=== PATIENT | male | born 1955 | race Caucasian/White ===

== ENCOUNTER 2024-04-30 19:40 | Emergency (ER) | payer MEDICARE ==
[2024-04-30 19:45] VITALS: RESP 18; TEMP 98.9
--- NOTE | 2024-04-30 19:47 | ED ---
Fall HPI - General Chief Complaint: Fall Stated Complaint: Fall Time Seen by Provider: 04/30/24 19:47 Source: EMS, RN notes reviewed, old records reviewed Mode of arrival: EMS Limitations: altered mental status - History of Present Illness Initial Comments: This is a 68-year-old male to the ER for evaluation patient is presenting by EMS after a fall fall from standing with head injury patient admits to hitting his head complaining of headache and does admit to Plavix, denies any other injury or traumatic issue, no back pain arm pain leg pain hand pain or neck pain patient does have hematoma and this fall was from standing backwards hitting his head without loss of consciousness. 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 ROS Other: All systems not noted in ROS Statement are negative. Past Medical History Past Medical History: CVA/TIA Additional Past Medical History / Comment(s): Unable to answer due to CVA hx Additional Past Surgical History / Comment(s): unknown Past Psychological History: Unable to Obtain General Exam General appearance: alert, in no apparent distress Head exam: Present: atraumatic, normocephalic, normal inspection Eye exam: Present: normal appearance, PERRL, EOMI. Absent: scleral icterus, conjunctival injection, periorbital swelling ENT exam: Present: normal exam, mucous membranes moist Neck exam: Present: normal inspection. Absent: tenderness, meningismus, lymphadenopathy Respiratory exam: Present: normal lung sounds bilaterally. Absent: respiratory distress, wheezes, rales, rhonchi, stridor Cardiovascular Exam: Present: regular rate, normal rhythm, normal heart sounds. Absent: systolic murmur, diastolic murmur, rubs, gallop, clicks GI/Abdominal exam: Present: soft, normal bowel sounds. Absent: distended, tenderness, guarding, rebound, rigid Extremities exam: Present: normal inspection, full ROM, normal capillary refill. Absent: tenderness, pedal edema, joint swelling, calf tenderness Back exam: Present: normal inspection Neurological exam: Present: alert, oriented X3, CN II-XII intact Psychiatric exam: Present: normal affect, normal mood Skin exam: Present: warm, dry, intact, normal color. Absent: rash Course Vital Signs 04/30/24 04/30/24 19:41 20:58 Temperature 98.9 F Pulse Rate 71 55 L Respiratory 18 18 Rate Blood Pressure 156/89 164/84 O2 Sat by Pulse 96 95 Oximetry - Reevaluation(s) Reevaluation #1: 04/30/24 21:42 Medical records reviewed Reevaluation #2: 04/30/24 21:42 Patient symptoms unchanged Patient was a code coag Patient was a fall on Plavix with intracranial hemorrhage, there is no medication to combat Plavix in the setting of acute traumatic injury Patient blood pressure is well-controlled Reevaluation #3: 04/30/24 21:42 Patient informed of results and questions answered 04/30/24 21:43 Family at bedside now also aware of findings Reevaluation #4: Was pt. sent in by a medical professional or institution (, PA, ADMISSIONS COORDINATOR, urgent care, hospital, or senior care...) When possible be specific @ -no Did you speak to anyone other than the patient for history (EMS, parent, family, police, friend...)? What history was obtained from this source @ -no Did you review nursing and triage notes (agree or disagree)? Why? @ -agree Are old charts reviewed (outside hosp., previous admission, EMS record, old EKG, old radiological studies, urgent care reports/EKG's, senior care records)? Report findings @ -yes Differential Diagnosis (chest pain, altered mental status, abdominal pain women, abdominal pain men, vaginal bleeding, weakness, fever, dyspnea, syncope, headache, dizziness, GI bleed, back pain, seizure, CVA, palpatations, mental health, musculoskeletal)? @ -prior EKG interpreted by me (3pts min.). @ -yes X-rays interpreted by me (1pt min.). @ -yes negative for acute disease CT interpreted by me (1pt min.). @ -no U/S interpreted by me (1pt. min.). @ -no What testing was considered but not performed or refused? (CT, X-rays, U/S, labs)? Why? @ -none What meds were considered but not given or refused? Why? @ -none Did you discuss the management of the patient with other professionals (professionals i.e. Dr., PA, ADMISSIONS COORDINATOR, lab, RT, psych nurse, social media editor, admissions coordinator, teacher, forward air controller/air officer, case specialist)? Give summary @ -no Was smoking cessation discussed for >3mins.? @ -no Was critical care preformed (if so, how long)? @ -no Were there social determinants of health that impacted care today? How? (Homelessness, low income, unemployed, alcoholism, drug addiction, transportation, low edu. Level, literacy, decrease access to med. care, [place] [facility], rehab)? @ -none Was there de-escalation of care discussed even if they declined (Discuss DNR or withdrawal of care, Hospice)? DNR status @ -no What co-morbidities impacted this encounter? (DM, HTN, Smoking, COPD, CAD, Cancer, CVA, ARF, Chemo, Hep., AIDS, mental health diagnosis, sleep apnea, morbid obesity)? @ -none Was patient admitted / discharged? Hospital course, mention meds given and route, prescriptions, significant lab abnormalities, going to OR and other pertinent info. @ - Undiagnosed new problem with uncertain prognosis? @ -no Drug Therapy requiring intensive monitoring for toxicity (Heparin, Nitro, Insulin, Cardizem)? @ -no Were any procedures done? @ -no Diagnosis/symptom? @ - Acute, or Chronic, or Acute on Chronic? @ -Acute Uncomplicated (without systemic symptoms) or Complicated (systemic symptoms)? @ -Complicated Side effects of treatment? @ -no Exacerbation, Progression, or Severe Exacerbation? @ -exacerbation Poses a threat to life or bodily function? How? (Chest pain, USA, IA, pneumonia, PE, COPD, DKA, ARF, appy, cholecystitis, CVA, Diverticulitis, Homicidal, Suicidal, threat to staff... and all critical care pts) @ -yes Reevaluation #5: Differential Headache: Migraine, tension, cluster, carbon monoxide, central venous thrombosis, pension karma temporal arteritis, acute closure glaucoma, intercranial hemorrhage, mastoiditis, sinusitis, head injury, this is not meant to be an all-inclusive list. - Consultations Consultation #1: Spoke with [facility], they accept patient for transfer Medical Decision Making - Medical Decision Making 68 male to ER for fall fall on Plavix positive intracranial hemorrhage and area of old CVA. Patient will be transferred to [facility] for neurosurgical evaluation and treatment - Radiology Data Radiology results: report reviewed (CT brain C-spine chest and pelvis x-ray negative for acute disease), image reviewed Critical Care Time Critical Care Time: Yes Total Critical Care Time: 31 Disposition Clinical Impression: Fall, Intracranial hemorrhage Disposition: OTHER INSTITUTION NOT DEFINED Condition: Serious Is patient prescribed a controlled substance at d/c from ED?: No Referrals: Nonstaff,Physician [Primary Care Provider] - 1-2 days Time of Disposition: 21:30
--- NOTE | 2024-04-30 20:33 | XR ---
EXAMINATION TYPE: XR pelvis AP view DATE OF EXAM: 04/30/2024 8:01 PM COMPARISON: None. CLINICAL INDICATION: Male, 68 years old with history of fall, pain TECHNIQUE: AP view(s) obtained. FINDINGS: Femoral heads articulate with the acetabulum. Joint spaces are preserved. No acute fractures evident. Symphysis pubis and sacroiliac joints are normal. Vascular calcification is noted. IMPRESSION: 1. No acute osseous abnormality [facility], , 04/30/2024 8:30 PM
--- NOTE | 2024-04-30 20:34 | XR ---
EXAMINATION TYPE: XR chest 1V DATE OF EXAM: 04/30/2024 8:01 PM COMPARISON: None. CLINICAL INDICATION: Male, 68 years old with history of fall, TECHNIQUE: XR chest 1V view(s) obtained. FINDINGS: The heart size is normal. The pulmonary vasculature is normal. Some subtle subsegmental atelectasis may be at the right diaphragm. No pneumothorax is evident. No displaced rib fractures identified IMPRESSION: 1. Suggestion of small subsegmental atelectasis right lung base. [facility], , 04/30/2024 8:32 PM
--- NOTE | 2024-04-30 21:16 | CT ---
EXAMINATION TYPE: CT brain cspine wo con DATE OF EXAM: 04/30/2024 9:00 PM COMPARISON: None. CLINICAL INDICATION: Male, 68 years old with history of fall, , pain TECHNIQUE: CT of the brain is performed utilizing 3 mm thick sections through the posterior fossa and 3 mm thick sections through the remaining calvarium. Study is performed within 24 hours of arrival to the hospital. Contrast used: mL of , (none if empty) CT DLP: 568.60 mGycm, Automated exposure control for dose reduction was used. FINDINGS: There is a hyperdense collection within the posterior occipital region just left of midline. This are a measures 2.7 x 1.7 x 2.8 cm and is compatible with an acute hemorrhage. This may reside within a pr ior left occipital lobe infarct. There are prior infarcts within the right parietal lobe and parietal occipital region on the left and watershed region on the left. Periventricular white matter hypodensity is present likely on the basi s of chronic white matter ischemic changes. Paranasal sinuses and mastoid air cells within the hbjct-in-ngol are clear. IMPRESSIONS: 1. Acute hemorrhage within the prior left occipital lobe infarct area. Report was called to the emerg ency room by Dr. No by telephone at 2109 hours 04/30/2024 CT cervical spine. COMPARISON: None TECHNIQUE: CT of the cervical spine is performed in the axial plane at 2 mm thick sections. Reconstr ucted images in the coronal, and sagittal plane are reviewed on the computer. FINDINGS: No acute fractures are evident. Vertebral body alignment is normal. Disc space narrowing is present throughout the cervical spine greatest C4-5 C5-6 and C6-7. Vertebral body heights are preserved. No spinal canal stenosis is evident. Uncovertebral joint hypertrophy is contributing to foraminal narrowing on the left at C3-4 on the lef t to moderate degree C4-5 more severely bilaterally C5-6 and C6-7 IMPRESSION: 1. Degenerative disc changes and foraminal stenosis discussed above. 2. No acute osseous abnormality radiographically apparent. [facility], , 04/30/2024 9:13 PM
[2024-04-30] MEDS ORDERED: SODIUM CHLORIDE 0.9% 1,000 ML IV STA (21:39)
[2024-04-30 22:06] LABS: Basophils # (A) 0.1 k/uL (0-0.2); Basophils % (A) 0 %; Eosinophils # (A) 0.4 k/uL (0-0.7); Eosinophils % (A) 3 %; HCT 44.5 % (39.0-53.0); HGB 14.7 gm/dL (13.0-17.5); Lymphocytes # (A) 2.6 k/uL (1.0-4.8); Lymphocytes % (A) 21 %; MCHC 33.2 g/dL (31.0-37.0); MCV 90.4 fL (80.0-100.0); Mean Platelet Volume 8.8; Monocytes # (A) 0.6 k/uL (0-1.0); Monocytes % (A) 5 %; Neutrophils # (A) 8.7 k/uL (1.3-7.7); Neutrophils % (A) 69 %; Platelet Count 235 k/uL (150-450); RBC 4.92 m/uL (4.30-5.90); WBC 12.6 k/uL (3.8-10.6)
[2024-04-30] MEDS: SODIUM CHLORIDE 0.9% 500 ML 500 ML IV STA (22:07)
[2024-04-30] MEDS: MORPHINE SULFATE 4 MG/ML SYRINGE IV STA (22:07)
[2024-04-30] MEDS: DESMOPRESSIN ACETATE 32 MCG in SODIUM CHLORIDE 0.9% 50 ML IVPB ONE (22:07)
[2024-04-30 22:12] VITALS: BP 143/71; PULSE 50
[2024-04-30] MEDS: LABETALOL 5 MG/ML VIAL MDV IVP STA (22:14)
[2024-04-30 22:27] LABS: INR 0.9 (<1.2); Prothrombin Time 10.5 sec (10.0-12.5)
[2024-04-30 22:30] LABS: ALT 44 U/L (4-49); AST 27 U/L (17-59); African American GFR (CKD) >90 (>60 ml/min/1.73 sqM); Albumin 4.5 g/dL (3.5-5.0); Alkaline Phosphatase 86 U/L (38-126); Anion Gap 9 mmol/L; Blood Urea Nitrogen 16 mg/dL (9-20); Calcium 9.6 mg/dL (8.4-10.2); Carbon Dioxide 30 mmol/L (22-30); Chloride 104 mmol/L (98-107); Glucose 105 mg/dL (74-99); Magnesium 2.1 mg/dL (1.6-2.3); Non-African American GFR(CKD) >90 (>60 ml/min/1.73 sqM); Phosphorus 2.7 mg/dL (2.5-4.5); Potassium 4.1 mmol/L (3.5-5.1); Sodium 143 mmol/L (137-145); Total Bilirubin 0.5 mg/dL (0.2-1.3); Total Protein 7.3 g/dL (6.3-8.2)
[2024-04-30 22:33] LABS: Partial Thromboplastin Time 19.2 sec (22.0-30.0)
[2024-04-30 22:38] LABS: NT-Pro-B-Type Natriuretic Pept 102 pg/mL
== END 2024-04-30 22:20 | disposition other institution (70) ==
LOC: EC 19:40
DX: S06.30AA Unspecified focal traumatic brain injury with loss of consciousness status unknown, initial encounter (principal); Z88.8 Allergy status to other drugs, medicaments and biological substances; W18.30XA Fall on same level, unspecified, initial encounter
CPT/HCPCS: 36415; 83880; 80053; 83735; 84100; 84484; 85025; 85610; 85730; 72170; 71045; 72125; 70450; 99285; 96365; 96375; J2597; J1920

== ENCOUNTER → 2024-06-13 | Outpatient (CLI) | payer MEDICARE, OTHER ==
--- NOTE | 2024-06-13 20:19 | CT ---
EXAMINATION TYPE: CT brain wo con CT DLP: 1150 mGycm, Automated exposure control for dose reduction was used. DATE OF EXAM: 06/13/2024 6:06 PM COMPARISON: CT brain C-spine 04/30/2024 CLINICAL INDICATION:Male, 68 years old with history of Z86.73 HX STOKE Z86.79 HX CIRC DISEASE Z87.898 HX, AMS, hx of stroke, intracranial hemorrhage, and seizures. TECHNIQUE: Brain: Multiple axial CT images of the brain were obtained without IV contrast. . Coronal and sagitta l reformats reviewed. FINDINGS: Brain: Extra-axial spaces: No abnormal extra-axial fluid collections. Ventricular system: Dilatation in proportion to cerebral atrophy. Cerebral parenchyma: Cerebral atrophy. Resolution of previously demonstrated left posterior subdural hematoma along the falx occipital region. No acute intraparenchymal hemorrhage or mass effect. Redem onstration of regions of encephalomalacia within the bilateral occipital, parietal, frontal and right temporal lobes. Patchy areas of low attenuation within the periventricular white matter. Cerebellum: Encephalomalacia within the right cerebellum redemonstrated. Mass effect: No evidence of midline shift. Intracranial vasculature: Atherosclerotic calcifications of the intracranial vessels. Soft tissues: Normal. Calvarium/osseous structures: No depressed skull fracture. Paranasal sinuses and mastoid air cells: The mastoid air cells are clear. Minimal mucosal thickening of the right maxillary sinus and mild mucosal thickening of the inferior left maxillary sinus. Hypopl filiberto of the right frontal sinus. Remaining paranasal sinuses are clear. Visualized orbits: Orbital contents are intact. IMPRESSION: 1. No acute intracranial process. Resolution of previously demonstrated left occipital subdural hemat jairo. 2. Redemonstration of scattered regions of encephalomalacia involving the bilateral frontal, parietal , occipital, right temporal lobes, and right cerebellum from prior infarcts. 3. Nonspecific white matter changes, likely secondary to chronic small vessel ischemic disease. [facility], , 06/13/2024 8:16 PM
== END | disposition home or self-care (01) ==
LOC: RADCTMAIN 17:11
PROVIDERS: ATTEND Psychiatry & Neurology Neurology
DX: S06.5X0A Traumatic subdural hemorrhage without loss of consciousness, initial encounter (principal); Z86.79 Personal history of other diseases of the circulatory system; R90.82 White matter disease, unspecified; G93.89 Other specified disorders of brain; Z87.898 Personal history of other specified conditions; Z86.73 Personal history of transient ischemic attack (TIA), and cerebral infarction without residual deficits
CPT/HCPCS: 70450